=== PATIENT | male | born 1950 | race Caucasian/White ===

== ENCOUNTER 2023-05-26 15:00 | Emergency (ER) | payer MEDICARE, SELFPAY ==
--- NOTE | ~2023-05-26 | XR_ITS ---
XR hip LT 2V w AP pelvis DATE: 05/26/2023 17:09 INDICATION: Left hip pain for 10 days. No known injury. TECHNIQUE: AP pelvis. AP and lateral views of left hip. COMPARISON: None FINDINGS: There is a transitional lumbosacral vertebra sacralization and pseudoarthrosis on the left. Degenerative disc disease is noted in the lower lumbar spine. The pubic symphysis and sacroiliac joints are intact. No pelvic fracture or bone destruction is detected. Mild left hip joint space narrowing. No fracture or dislocation, avascular necrosis or bone destruction of the left hip is detected. 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
[2023-05-26 16:01] VITALS: BP 136/91; PULSE 79; RESP 18; TEMP 36.8; O2SAT 98
--- NOTE | 2023-05-26 18:14 | ED.EXTPRO ---
HPI - Extremity Problem General Chief complaint: Extremity Problem,Nontraumatic Stated complaint: L HIP PAIN [id number] Time Seen by Provider: 05/26/23 17:56 History of Present Illness HPI Narrative: 73-year-old male presented emergency department for evaluation of left hip pain. Patient states that he did have left hip pain intermittently over the last few days but after increased activity including some heavy lifting and some brisk walking he had worsening symptoms. Patient did take a prednisone, Flexeril and Vicodin from home and reported some minor improvement. Patient denies any associated numbness or weakness. Patient states he got left hip pain that does radiate down the left thigh. Patient denies any difficulty starting urination but does report some issues with constipation. Related Data Home Medications Medication Instructions Recorded Confirmed atorvastatin 40 mg tablet 40 mg PO HS 05/05/23 05/05/23 levothyroxine 88 mcg tablet 88 mcg PO DAILY 05/05/23 05/05/23 lisinopril 10 1 tablet PO DAILY 05/05/23 05/05/23 mg-hydrochlorothiazide 12.5 mg tablet Allergies Allergy/AdvReac Type Severity Reaction Status Date / Time No Known Allergies Allergy Verified 05/26/23 17:44 Review of Systems Review of Systems: All systems reviewed & are unremarkable except as noted in HPI and below PMFSH Social History Social History Smoking status: Never smoker Alcohol intake: current Alcohol use details: 2 beers daily Substance use type: does not use Living arrangements: with family Spiritual care concerns: No Exam Narrative: APPEARANCE: Well appearing, no pain, no distress, well-nourished. HEAD: normocephalic, atraumatic. EYES: PERRLA/EOMI, conjunctivae clear. NOSE: Normal no drainage EARS:TMS clear with good light reflex. THROAT: Pharynx clear, no exudate. NECK: Supple. No adenopathy, no masses. RESPIRATORY: Airway patent, respirations nonlabored. Clear to auscultation bilaterally, no rales, rhonchi, wheezing. CARDIOVASCULAR: Regular rate and rhythm without murmurs rubs or gallops. ABDOMINAL: Soft, nontender, nondistended, normal bowel sounds MUSCULOSKELETAL: Reproducible left hip tenderness to palpation. NEURO: Alert. Cranial nerves II through XII intact. Grossly intact SKIN: Warm, dry. Normal Color Course Course Emergency Course: 73-year-old male presented the ED for evaluation of left hip pain. Patient's exam is consistent with sciatica. Patient will be started on Medrol Dosepak, Flexeril and provided some Eaton for pain control. Patient does have follow-up scheduled with orthopedics. Vital Signs Vital signs: Vital Signs Temperature 98.2 F 05/26/23 16:01 Pulse Rate 79 05/26/23 16:01 Respiratory Rate 18 05/26/23 16:01 Blood Pressure 136/91 H 05/26/23 16:01 Pulse Oximetry 98 05/26/23 16:01 Oxygen Delivery Room Air 05/26/23 16:01 Temperature 98.2 F 05/26/23 16:01 Pulse Rate 79 05/26/23 16:01 Respiratory Rate 18 05/26/23 16:01 Blood Pressure 136/91 H 05/26/23 16:01 Pulse Oximetry 98 05/26/23 16:01 Oxygen Delivery Room Air 05/26/23 16:01 Discharge Plan Discharge Clinical Impression: Sciatica Patient Disposition: Home, Self-Care Condition: Stable Instructions: Antibiotic Form, Sciatica (ED) Additional Instructions: Medrol Dosepak as directed. Flexeril for muscle spasm. Eaton as needed for additional pain control. Have close follow-up with orthopedics as scheduled. If you have any worsening symptoms then please call or return to the emergency department. Prescriptions: New methylprednisolone [Medrol (Adeel)] 4 mg tablets,dose pack See Rx Instructions .ROUTE .COMPLEX Qty: 21 0RF Rx Instructions: orally per package directions cyclobenzaprine 10 mg tablet 10 mg PO BID PRN (Reason: muscle spasm) Qty: 14 0RF hydrocodone-acetaminophen 5-325 mg tablet 1 tablet PO Q12H PRN (Reason: pain) Qty: 10 0RF No Acti
[2023-05-26] MEDS: CYCLOBENZAPRINE HCL 10 MG TABLET PO (18:20)
[2023-05-26] MEDS: HYDROcodone/acetaminophen (*CRX) 5-325 MG TABLET 1 TAB PO (18:20)
[2023-05-26] MEDS: KETOROLAC 30 MG/ML VIAL (*BKC) IM (18:20)
== END 2023-05-26 18:41 | disposition home or self-care (01) ==
PROVIDERS: Emergency Provider Emergency Medicine; PCP Internal Medicine
DX: M54.30 Sciatica, unspecified side (principal)
CPT/HCPCS: 73502; 96372; 99283; A9270; J1885

== ENCOUNTER → 2023-06-15 12:52 | Outpatient (CLI) | payer MEDICARE, SELFPAY ==
--- NOTE | ~2023-06-15 | MR_ITS ---
EXAMINATION: MR lumbar spine wo con DATE: 06/15/2023 13:45 INDICATION: Left L5 radiculopathy. TECHNIQUE: Magnetic resonance imaging (MRI) of the lumbar spine was performed without intravenous con trast. Sequences included sagittal T2-weighted FSE, sagittal T2-weighted FS FSE, sagittal T1-weighted FSE, and axial T2-weighted FSE. COMPARISON: None FINDINGS: There is 6 degrees levocurvature of lumbar spine. L5 is a transitional segment. Vertebral b cristina heights are normal. There is mildly decreased disc height at L2-L3, mildly decreased disc height at L3-L4, severely decreased disc height at L4-L5. The distal spinal cord signal intensity is normal. The conus medullaris is at T12. The following disc levels are specifically discussed: L1-L2: The disc does not extend beyond the endplate margin. There is mild bilateral facet joint osteo arthritis. There is no neural foraminal stenosis. There is no central canal stenosis. L2-L3: The disc is bulging and has an annular fissure. There is mild right facet joint osteoarthritis . There is mild bilateral neural foraminal stenosis. There is mild central canal stenosis. L3-L4: The disc is bulging. There is severe bilateral facet joint osteoarthritis. There is mild right and moderate left neural foraminal stenosis. There is moderate central canal stenosis. L4-L5: The disc is bulging with superimposed right subarticular zone extrusion with mass effect on ri ght L5 nerve root. There is moderate bilateral facet joint osteoarthritis. There is mild right and mo derate left neural foraminal stenosis. There is mild central canal stenosis. There is moderate stenos is of right lateral recess. There are changes of posterior decompression on the right. L5-S1: The disc does not extend beyond the endplate margin. There is mild bilateral facet joint osteo arthritis. There is no neural foraminal stenosis. There is no central canal stenosis. IMPRESSION: 1. Severe lumbar spondylosis. Reviewed, dictated and finalized at location A.
== END ==
PROVIDERS: PCP Internal Medicine; Visit Provider Orthopaedic Surgery
DX: M47.26 Other spondylosis with radiculopathy, lumbar region (principal)
CPT/HCPCS: 72148

== ENCOUNTER 2023-07-09 11:36 | Day surgery (SDC) | payer MEDICARE, SELFPAY ==
[2023-04-06 09:17] VITALS: BMI 28.1
[2023-06-02 13:29] VITALS: BMI 28.0
--- NOTE | 2023-07-08 15:57 | P.PNAN_ITS ---
Anes - Initial Pre Proc Eval Procedure: Operation Date: 07/09/23 13:30 Proposed Procedures p Diagnostic Colonoscopy - Maximino Hernandez MD Date/Time: 07/08/23 15:57 Surgeon: Maximino Hernandez MD Pre Op Diagnosis: History of Colon Polyps Patient Data Age: 73 Gender: M Height: 1.83 m Weight: 94 kg Allergies Allergy/AdvReac Type Severity Reaction Status Date / Time No Known Allergies Allergy Verified 07/09/23 12:15 Home Medications Medication Instructions Recorded Confirmed Type sodium,potassium,mag sulfates 17.5 See Rx Instructions PO .COMPLEX 04/06/23 07/09/23 Rx gram-3.13 gram-1.6 gram oral soln #354 mL (Suprep Bowel Prep Kit) atorvastatin 40 mg tablet 40 mg PO HS 05/05/23 07/09/23 History levothyroxine 88 mcg tablet 88 mcg PO DAILY 05/05/23 07/09/23 History lisinopril 10 1 tablet PO DAILY 05/05/23 07/09/23 History mg-hydrochlorothiazide 12.5 mg tablet cyclobenzaprine 10 mg tablet 10 mg PO BID PRN muscle spasm #14 05/26/23 07/09/23 Rx tabs hydrocodone 5 mg-acetaminophen 325 1 tablet PO Q12H PRN pain #10 tabs 05/26/23 07/09/23 Rx mg tablet sodium,potassium,mag sulfates 17.5 See Rx Instructions PO .COMPLEX 07/07/23 07/09/23 Rx gram-3.13 gram-1.6 gram oral soln #354 mL (Suprep Bowel Prep Kit) Patient hx anesthesia problems: none Family hx anesthesia problems: none Results Review: All pre-operative results and documents have been reviewed as part of the pre- operative evaluation. [facility] Past Medical History Medical History (Updated 07/09/23 @ 12:40 by Maximino Hernandez MD) Hyperlipidemia Hypertension Hypothyroidism Social History Social History Smoking status: Never smoker Alcohol intake: current Alcohol use details: 2 beers daily Substance use type: does not use Living arrangements: with family Spiritual care concerns: No Anes - Eval Final PreProcedure Day of Procedure 07/08/23 15:57 Patient weight: overweight Heart: regular rate and rhythm Lungs: clear to auscultation Airway: Mallampati scale class II Neurological: alert and oriented Last oral intake: >/= 8 hours ASA classification: III Emergent: no Anesthetic plan: proceed Anesthesia type and monitoring: general GIVS and standard monitoring Results Review: All pre-operative results and documents have been reviewed as part of the pre- operative evaluation. Informed Consent: The patient's anesthetic plan and its attendant risks and benefits were discussed with the patient/family/POA. Questions were solicited and answers provided to the satisfaction of the patient/family/POA.
[2023-07-09 12:10] VITALS: BP 171/95; PULSE 89; RESP 20; TEMP 36.7; O2SAT 100
--- NOTE | 2023-07-09 12:38 | PM.HPGS ---
History of Present Illness History of Present Illness Consent: Risks, benefits, and alternatives have been discussed and questions answered. Patient agrees to proceed with procedure. Chief complaint: History of Colon Polyps Narrative: Josh Cooper is a 73 year old male Presents for screening colonoscopy. Patient was found to have a benign colon polyp removed from the colon in 2018. Patient reports his current weight appetite and bowel movements are normal. Patient denies abdominal pain. He has had no bleeding. Family history is noncontributory. Review of Systems Review of Systems: Review of systems reveals patient has complaints of see attic up. He says stable at present. Otherwise review of systems noncontributory. [facility] Past Medical History Medical History (Updated 07/09/23 @ 12:40 by Maximino Hernandez MD) Hyperlipidemia Hypertension Hypothyroidism Social History Social History Smoking status: Never smoker Alcohol intake: current Alcohol use details: 2 beers daily Substance use type: does not use Living arrangements: with family Spiritual care concerns: No Meds Home Medications and Allergies Home Medications Medication Instructions Recorded Confirmed Type sodium,potassium,mag sulfates 17.5 See Rx Instructions PO .COMPLEX 04/06/23 07/09/23 Rx gram-3.13 gram-1.6 gram oral soln #354 mL (Suprep Bowel Prep Kit) atorvastatin 40 mg tablet 40 mg PO HS 05/05/23 07/09/23 History levothyroxine 88 mcg tablet 88 mcg PO DAILY 05/05/23 07/09/23 History lisinopril 10 1 tablet PO DAILY 05/05/23 07/09/23 History mg-hydrochlorothiazide 12.5 mg tablet cyclobenzaprine 10 mg tablet 10 mg PO BID PRN muscle spasm #14 05/26/23 07/09/23 Rx tabs hydrocodone 5 mg-acetaminophen 325 1 tablet PO Q12H PRN pain #10 tabs 05/26/23 07/09/23 Rx mg tablet sodium,potassium,mag sulfates 17.5 See Rx Instructions PO .COMPLEX 07/07/23 07/09/23 Rx gram-3.13 gram-1.6 gram oral soln #354 mL (Suprep Bowel Prep Kit) Allergies Allergy/AdvReac Type Severity Reaction Status Date / Time No Known Allergies Allergy Verified 07/09/23 12:15 Vital Signs Vital Signs - 24 hr 07/09/23 12:10 Temperature 98.1 F Pulse Rate 89 Respiratory Rate 20 Blood Pressure 171/95 H Pulse Oximetry 100 Oxygen Delivery Room Air Exam Narrative: Physical exam reveals patient to be alert. Vital signs stable. HEENT exam is unremarkable. Patient is anicteric. Lungs are clear to auscultation and to percussion heart is without murmur or extra sounds. Abdomen bowel sounds are present soft nontender with no organomegaly. External rectal exam is normal. Assessment and Plan Assessment and plan (1) History of colon polyps: Code(s): Z86.010 - Personal history of colonic polyps Status: Acute Assessment and Plan: Patient has a history of colon polyps. Plan for surveillance colonoscopy now, and consider this at 5 year intervals.
[2023-07-09] MEDS: LACTATED RINGERS 1,000 ML 150 ML IV CONT (12:41)
[2023-07-09 13:10] VITALS: BP 97/49; PULSE 72; RESP 16; O2SAT 100
[2023-07-09 13:20] VITALS: BP 109/80; PULSE 73; RESP 16; O2SAT 97
[2023-07-09 13:35] VITALS: BP 123/93; PULSE 73; RESP 16; O2SAT 97
== END 2023-07-09 13:55 | disposition home or self-care (01) ==
PROVIDERS: PCP Nurse Practitioner Family; Visit Provider Internal Medicine Gastroenterology
PROC: 0DJD8ZZ Inspection of Lower Intestinal Tract, Via Natural or Artificial Opening Endoscopic (ICD-10-PCS; CPT 45378; principal; 2023-07-09 13:30)
DX: Z86.010 Personal history of colon polyps (principal); K64.8 Other hemorrhoids
CPT/HCPCS: 45378

== ENCOUNTER 2025-03-16 16:08 | Emergency (ER) | payer MEDICARE, SELFPAY ==
--- OUTSIDE RECORDS SUMMARY | 2025-03-16 16:10 | XMS_ITS | Clinical Summary ---
Author Organization [facility] Address [address] [place] [id number] Care Team Providers Care Mirror Machine Feeder Name Role Phone Unavailable Primary Care Provider Unavailabl e Social History Tobacco Use Types Packs/Day Years Used Date Smoking Tobacco: Never Assessed Sex and Gender Information Value Date Recorded Sex Assigned at Not on file Legal Sex Male 11:06 PM CDT Gender Identity Not on file Sexual Orientation Not on file Plan of Treatment Health Maintenance Due Date Last Done Comments Colorectal Cancer Screening Colonoscopy (10 Years) 1950 Hepatitis C 01/01/1970 DTaP, Tdap and Td Vaccines ( 1 - Tdap) 01/01/1971 Pneumococcal Vaccine: 50+ Ye ars (1 of 1 - PCV) 01/01/2002 Zoster Vaccines (1 of 2) 01/01/2002 COVID-19 Vaccine ( - 2023-2 5 season) 2024 RSV Immunization or 60+ Years (1 - 1-dose 75+ series) 01/01/2027 Meningococcal B Vaccine Aged Out No l onger eligible based on patient's age to complete this topic Meningococcal Vaccine Aged Out No charanjit elaine eligible based on patient's age to complete this topic RSV Immunizations Under 20 Months Aged Out No longer eligible based on patient's age to complete this topic
--- OUTSIDE RECORDS SUMMARY | 2025-03-16 16:10 | XMS_ITS | Continuity of Care Document ---
Author Organization [facility] Address [address] [place] [address] [address] [place] [address] Phone Care Team Providers Care Wine Blender Name Role Phone Re Hawk Unavailable Unavailable Advance Directives Directive Yes / No Effective Date File Name No Information Encounters Encounter Description Practice Location Reason(s) For Visit Diagnoses Date Provider Providers Copied on Encounter [facility], [id number] [place] [address] [address], [place], [place], [id number], [place] tel:[phone] SEC [facility] No Information Mar-0 3-200 5 Carine Grimaldo. [address] [facility] , [address], [place], [address], [place]. tel:[phone] Family History Family Member Type Diagnosis Age At Onset No Information Payers Payer name Insurance type Covered libertarian ID Authoriza tion(s) No Information Social History Type Description Quantity Date Captured Comments Sex Male Smoking Status No Information Chief Complaint And Reason For Visit No Information Reason For Referral Reason For Referral No Information History Of Present Illness Encounter Date Complaint History Of Prese nt Illness No Information Functional Status Date Functional Assessmen t No Information Instructions Date Instruction Additional Infor mation No Information Assessments Type Assessment Date No Information Patient Care Teams Name Effective Dates (start - stop) Status Members No Information
--- OUTSIDE RECORDS SUMMARY | 2025-03-16 16:10 | XMS_ITS | Data Portability ---
Author Organization [place] [facility] [employer], Main Office Address [address] [place] [address] Care Team Providers Care Casing Fluid Tender Name Role Phone HOMERO BELL Primary Care Provider [phone] Assessment Encounter Date Assessment Date Assessment LastModified by Organization Details LastModified Time 02/18/2024 02/18/2024 09/10/2023: Maya [facility] PSA 2.91 A1C 5.8H Not available 02/18/2024 16:22:19 09/20/2024 09/20/2024 09/10/2023: Maya Jean [facility] PSA 2.91 A1C 5.8H 09/19/2024: TG 159 Gluc 109 PSA 2.28 Not available 09/20/2024 11:27:12 12/20/2024 12/20/2024 09/10/2023: Maya Jean [facility] PSA 2.91 A1C 5.8H 09/19/2024: TG 159 Gluc 109 PSA 2.28 Not available 12/20/2024 14:59:36 03/07/2025 03/07/2025 09/10/2023: Maya Jean [facility] PSA 2.91 A1C 5.8H 09/19/2024: TG 159 Gluc 109 PSA 2.28 03/02/2025: [facility] A1C 6.2 TSH 4.55H, FT41.1 Not available 03/07/2025 11:49:21 Plan of Treatment Reminders Order Date Submit Date Provider Last Modified By Organization Details Last Modified Time Details Appointments Any 15 2024 10:30A Dany gonzalez MD Not available Not available Not available Lab vitamin D, 25-hydrox y, total, serum 2024 025 [place] [facility], [address], [place], [address], 03/07/2025 11:52:22 HbA1c (hemoglob in A1c), blood 2024 025 [place] [facility], [address], [place], [address], 03/07/2025 11:52:26 microalbu min/creat inine, mass ratio, urine 2024 025 [place] [facility], [address], [place], [address], 03/07/2025 11:52:24 CMP, serum or plasma 2024 025 [place] [facility], [address], [place], [address], 03/07/2025 11:52:24 CBC w/ auto diff 2024 025 [place] [facility], [address], [place], [address], 03/07/2025 11:52:22 lipid panel, serum 2024 025 [place] [facility], [address], [place], [address], 03/07/2025 11:52:25 T4, free, serum 2024 025 [place] [facility], [address], [place], [address], 03/07/2025 11:52:23 TSH, serum or plasma 2024 025 [facility], [address], [place], [address], 03/07/2025 11:52:24 vitamin B12 + folate, serum or blood 2024 [place] [facility], [address], [place], [address], 03/07/2025 11:52:25 vitamin D, 25-hydrox y, total, serum 2024 025 [place] [facility], [address], [place], [address], 12/20/2024 12:03:33 HbA1c (hemoglob in A1c), blood 2024 [place] [facility], [address], [place], [address], 03/07/2025 12:33:28 microalbu min/creat inine, mass ratio, urine 2024 025 [place] [facility], [address], [place], [address], 12/20/2024 12:03:30 CMP, serum or plasma 2024 025 [facility], [address], [place], [address], 03/07/2025 15:30:18 CBC w/ auto diff 2024 025 [place] [facility], [address], [place], [address], 12/20/2024 12:03:32 lipid panel, serum 2024 025 [place] [facility], [address], [place], [address], 03/07/2025 15:30:18 T4, free, serum 2024 025 [place] [facility], [address], [place], [address], 12/20/2024 12:03:35 TSH, serum or plasma 2024 025 [place] [facility], [address], [place], [address], 12/20/2024 12:03:33 vitamin B12 + folate, serum or blood 2024 025 [place] [facility], [address], [place], [address], 03/07/2025 15:30:18 vitamin D, 25-hydrox y, total, serum 2024 025 [place] [facility], [address] [place], [address], 09/20/2024 11:27:30 HbA1c (hemoglob in A1c), blood 2024 025 [place] [facility], [address], [place], [address], 09/20/2024 11:27:32 microalbu min/creat inine, mass ratio, urine 2024 025 [place] [facility], [address] [place], [address], 09/20/2024 11:27:29 CMP, serum or plasma 2024 025 [place] [facility], [address] [place], [address], 09/20/2024 11:27:32 CBC w/ auto diff 2024 025 [place] [facility], [place], [address], 09/20/2024 11:27:29 lipid panel, serum 2024 025 [employer] [facility], [address], [place], [address], 09/20/2024 11:27:30 T4, free, serum 2024 025 [place] [employer] [facility], [address], [place], [address], 09/20/2024 11:27:33 TSH, serum or plasma 2024 025 [place] [facility], [address], [place], [address], 09/20/2024 11:27:33 vitamin B12 + folate, serum or blood 2024 025 [place] [employer] [facility], [address], [place], [address], 09/20/2024 11:27:31 vitamin D, 25-hydrox y, total, serum 2023 024 [email or web address] [employer] [facility], [address], [place], [address], 11/01/2024 08:38:19 HbA1c (hemoglob in A1c), blood 2023 024 [place] [facility], [address], [place], [address], 09/20/2024 17:26:01 microalbu min/creat inine, mass ratio, urine 2023 024 [email or web address] [employer] [facility], [address], [place], [address], 11/01/2024 08:38:19 CMP, serum or plasma 2023 024 [place] [address] [employer] [facility], [address], [place], [address], 11/01/2024 08:38:18 CBC w/ auto diff 2023 024 [place] [address] [employer] [facility], [address], [place], [address], 11/01/2024 08:38:18 lipid panel, serum 2023 024 [place] [address] [employer], [address], [place], [address], 11/01/2024 08:38:18 T4, free, serum 2023 024 [place] [address] [employer], [address], [place], [address], 11/01/2024 08:38:18 TSH, serum or plasma 2023 024 [place] [address] [employer], [address], [place], [address], 11/01/2024 08:38:18 vitamin B12 + folate, serum or blood 2023 024 [place] [address] [employer], [address], [place], [address], 11/01/2024 08:38:19 Referral diabetic ophthalmo logy referral - Please call patient to schedule an appointme nt. Thank you. 2024 025 [facility], [address], [place], [address], 03/07/2025 12:51:27 podiatris t referral - Please call patient to schedule an appointme nt. Thank you. 2024 025 [facility] Ogden [facility], [address], [address], [place], [address], 03/07/2025 12:46:10 diabetic ophthalmo logy referral - Please call patient to schedule an appointme nt. Thank you. [address] [facility], [address], [place], [address], 12/21/2024 10:30:29 podiatris t referral - Please call patient to schedule an appointme nt. Thank you. 2024 025 LIONEL Ogden [facility], [address], [facility] [address], [place], [address], 12/21/2024 11:10:51 diabetic ophthalmo logy referral - Please call patient to schedule. [address], [address], [place], [address], 11/23/2024 08:13:37 podiatris t referral 2024 025 Osiel Ogden DPM, [address], [facility], [place], [address], 09/20/2024 16:04:02 diabetic ophthalmo logy referral 2023 024 [email or web address] Rell Bruce, [facility], [place], [address], 09/20/2024 16:04:19 podiatris t referral 2023 024 [email or web address] Osiel Ogden DPM, [address], [facility] [address], [place], [address], 09/20/2024 16:03:56 Procedures None recorded. Surgeries None recorded. Imaging None recorded. Medication Orders diclofena c sodium 75 mg tablet,de layed release 2024 025 [place] [facility], [address], [address], [place], [place], [phone], 03/07/2025 11:51:40 diclofena c sodium 75 mg tablet,de layed release 2024 025 [facility], [address] [place] [address], [address], [place], [place], [phone], 12/20/2024 12:03:12 Patient TargetsNo targets recorded. Patient Instructions Encounter Date Encounter Id Patient Instructions Last Modified By Organization Details Last Modified Time 02/18/2024 [id number] dementia rating scale-2* Not available 02/18/2024 16:35:09 alcohol misuse* [email or web address] Not available 02/18/2024 16:35:20 depression screening* Not available 02/18/2024 16:35:41 Timed Up and Go test (TUG)* [email or web address] Not available 02/22/2024 18:38:41 multi-dimensiona l health assessment questionnaire* [email or web address] Not available 02/18/2024 16:34:29 Personalized [facility] lth Plan and Screening Recommendations Advance Directives - Do you have one? Yes Advance Directives - Do we have your advance directive on file in your health record? No, please bring in a copy at your earliest convenience Primary Prevention/Interven tion (prevents or decreases the chance of common diseases from occurring) Smoking Risk: Non Smoker Alcohol Misuse Screening: Negative Weight: Overweight try to lose 5% of your body weight Physical activity: Appropriate physical activity Nutrition: Average Refer to attached handout DASH Diet: After Your Visit Fall Risk (screened today): Low Refer to attached handout Preventing Falls: After your Visit Vaccines Pneumococcal: No further needed Influenza: Your next one in the fall of this year Chronic Disease Risks Stroke: Intermediate Risk Follow DASH diet Heart Attack: Intermediate Risk Follow DASH diet/ exercise daily Clogging of the Arteries: High risk Follow DASH diet Diabetes: High Risk Drastically limit sugar and products made with any type of flour (bread, pasta, cereal, cookies, crackers, etc.) Secondary Prevention/Interven tion (detects treatable diseases before they may cause symptoms, disability, or ) Prostate Cancer Screening: Your next PSA in: Ordered Colon Cancer Screening: Colonoscopy Date Screening Last Performed: 2022 Eye Disease Screening: Recommended today Dementia Risk: Low I have no recommendations Depression Screening: Negative [email or web address] Not available 02/18/2024 16:40:34 Reason for Referral Diabetic Ophthalmology Refer ral for Prediabetes Referring Physician: [facility], Encounter Date: 02/18/2024 Afternoon Nanny Referral for Pred iabetes Referring Physician: [facility]ero [facility], Encounter Date: 02/18/2024 Diabetic Ophthalmology Refer ral for Prediabetes Please call patient to schedule. Referring Physician: [facility], Encounter Date: 09/20/2024 Afternoon Nanny Referral for Pred iabetes Referring Physician: [facility]ero [facility], Encounter Date: 09/20/2024 Diabetic Ophthalmology Refer ral for Prediabetes Please call patient to schedule an appointment. Thank you. Referring Physician: Maru [facility], Encounter Date: 12/20/2024 Afternoon Nanny Referral for Pred iabetes Please call patient to schedule an appointment. Thank you. Referring Physician: Maru [facility], Encounter Date: 12/20/2024 Diabetic Ophthalmology Refer ral for Prediabetes Please call patient to schedule an appointment. Thank you. Referring Physician: Maru [facility], Encounter Date: 03/07/2025 Afternoon Nanny Referral for Pred iabetes Please call patient to schedule an appointment. Thank you. Referring Physician: Maru [facility], Encounter Date: 03/07/2025 Results Created Date Observation Date Name Description Value Unit Range Abnormal Flag Note LastModifiedBy Organization Detail LastModifiedTime Result Notes None recorded. Problems Name Problem SNOMED Code Status Onset Date Resolution Date Notes Provider Name and Address Organization Details Recorded Time Prediabet es 972873822 Active 2022 Not Available [employer] 3 09:48:33 Blood in urine 03417831 Active 2022 Not Available [facility] 3 09:48:33 Nocturia 459488534 Completed Not Available [facility] 3 03:03:12 On examinati on - initial high BP Completed 201605/27/2018 Not Available [facility] 3 03:03:13 Multiple skin tags 282817299 Active 2021 Not Available [facility] 3 09:48:33 Hypothyro idism 11778715 Active Not Available [facility] 3 09:48:33 Hyperlipi demia 05678055 Active Not Available [facility] 3 09:48:33 Essential hypertens ion 55548776 Active Not Available [facility] 3 09:48:33 Fatigue 47277795 Completed Not Available [facility] 3 03:03:13 Pain of left hip joint 84615544562 9100 Active 2022 Not Available [facility] 3 09:48:33 Lumbar radiculop athy 352416517 Active 2022 Swetha Juan CMA null, [facility] 3 18:18:14 Low back pain 369119522 Active 2022 ANTON Lerma null, [place] [facility] 3 14:49:17 Chronic low back pain 033802135 Active 2022 EPIFANIO Johns [address], [address], [place], [address] , [facility] 3 11:23:31 Upper respirato ry infection 46568141 Active 2023 EPIFANIO Johns [address], [address], [place], [address] , [facility] 4 14:52:56 Vitamin D deficienc y 67782019 Active 2023 Homero villareal MD [address], [address], [place], [address] , [facility] [employer] [facility] 4 16:08:04 Serum vitamin B12 below reference range 733116024 Active 2023 Homero villareal MD [address], [address], [place], [address] , [facility] [employer] [facility] 4 16:08:16 Problem Notes None recorded. Procedures Surgical History Date Name Laterality Status Provider Name and Address Organization Details Recorded Time 02/18/20 24 Medicare Wellness CPT Code, subsequent completed Damir Aguilar LPN [facility] [employer] [facility] 02/17/2024 17:27:09 10/16/19 Colonoscopy with biopsy completed Haley Enriquez MA [facility] [employer] [facility] 02/18/2024 15:55:47 Tonsillectomy completed Not Available [facility] 11/05/2022 02:55:59 Hernia Repair completed Not Available [facility] 11/05/2022 02:55:59 Back Surgery completed Not Available [facility] 11/05/2022 02:55:59 Imaging Results None recorded. Procedure Notes None recorded. Medical Equipment None Reported. Allergies No known drug allergies Medications Name Sig Start Date Stop Date Status Note LastModified by Organization Details LastModified Time cyclobenzap rine 10 mg tablet TAKE 1 TABLET BY MOUTH TWICE DAILY NEEDED 09/20 completed Not Available Not Available Not Available amoxicillin 500 mg capsule Take 1 capsule 3 times a day by oral route. 12/23 completed Not Available Not Available Not Available atorvastati n 40 mg tablet TAKE 1 TABLET BY MOUTH DAILY 2024 active Not Available Not Available Not Avai lable buspirone 5 mg tablet TAKE 1 TABLET 3 TIMES DAILY NEEDED active Not Available Not Available No t Available atorvastati n 20 mg tablet TAKE 1 TABLET BY MOUTH EVERY DAY 04/30 completed Not Available Not Available Not Available azithromyci n 250 mg tablet TAKE 2 TABLETS BY MOUTH ON DAY 1, AND THEN TAKE 1 TABLET BY MOUTH ONCE A DAY ON DAY 2 THROUGH DAY 5 02/17 completed Not Available Not Available Not Available benzonatate 200 mg capsule Take 1 capsule 3 times a day by oral route as needed. 02/02 completed Not Available Not Available Not Available hydrocodone 5 mg-acetamin ophen 325 mg tablet TAKE 1 TABLET BY MOUTH EVERY 12 HOURS NEEDED FOR PAIN 08/13 completed Not Available Not Available Not Available meloxicam 15 mg tablet TAKE 1 TABLET BY MOUTH ONCE DAILY 08/13 completed Not Available Not Available Not Available levothyroxi ne 88 mcg tablet TAKE 1 TABLET BY MOUTH IN THE MORNING active Not Available Not Available No t Available hyoscyamine 0.125 mg sublingual tablet DISSOLVE 1 TABLET UNDER THE TONGUE EVERY 4 HOURS NEEDED FOR SPASM 02/17 completed Not Available Not Available Not Available diclofenac sodium 75 mg tablet,sara yed release Take 1 tablet twice a day by oral route as needed. 2024 active Not Available Not Available Not Avai lable Cheratussin AC 10 mg-100 mg/5 mL oral liquid Take 10 mL 3 times a day by oral route. 12/23 completed Not Available Not Available Not Available lisinopril 10 mg-hydrochl orothiazide 12.5 mg tablet TAKE 1 TABLET BY MOUTH DAILY active Not Available Not Available No t Available methylpredn isolone 4 mg tablets in a dose pack TAKE BY MOUTH DIRECTED ON INSIDE OF PACKAGE 09/20 completed Not Available Not Available Not Available ondansetron 4 mg disintegrat ing tablet DISSOLVE 1 TABLET IN MOUTH EVERY 8 HOURS NEEDED FOR NAUSEA AND VOMITING FOR 5 DAYS 02/17 completed Not Available Not Available Not Available amoxicillin 875 mg-potassiu m clavulanate 125 mg tablet TAKE 1 TABLET BY MOUTH TWICE A DAY FOR 10 DAYS 12/20 completed Not Available Not Available Not Available Cialis 20 mg tablet TAKE DIRECTED. 11/24 completed Not Available Not Available Not Available melatonin 10mg QHS active Not Available Not A vailable Not Available Benadryl 50mg QHS active Not Available Not Av ailable Not Available Toradol 08/13 completed Not Available Not Available Not Available fenofibrate nanocrystal lized 145 mg tablet TAKE ONE TABLET BY MOUTH ONCE DAILY active Not Available Not Available No t Available CoQ-10 take 1 tab daily 12/10 completed Not Available Not Available Not Available sodium,pota ssium,mag sulfates 17.5 gram-3.13 gram-1.6 gram oral soln MIX AND DRINK DIRECTED 08/13 completed Not Available Not Available Not Available Fluzone Quad 6544-9555 (PF) 60 mcg (15 mcg x 4)/0.5 mL IM syringe active Not Available Not Available N ot Available Fluad 65yr up(PF)45 mcg(15 mcgx3)/0.5 mL intramuscul ar syringe 02/02 completed Not Available Not Available Not Available Fluad 65yr up(PF)45 mcg(15 mcgx3)/0.5 mL intramuscul ar syringe active Not Available Not Available N ot Available Vitals Date Recorded Body height Body mass index (BMI) Body weight Body temperature Heart rate Systolic And Diastolic Provider Name and Address Organization Details Last Updated DateTime 5 180.34 cm 28.7 kg/m2 27709.0 3 g 97.6 [degF] 60 /min 126/68 mm[Hg] ANTON Diallo [employer] [facility] [employer] 5 11:09:58 Date Recorded Body height Body mass index (BMI) Body weight Body temperature Heart rate Systolic And Diastolic Provider Name and Address Organization Details Last Updated DateTime 5 180.34 cm 28.5 kg/m2 56945.8 4 g 97.5 [degF] 60 /min 124/70 mm[Hg] ANTON Diallo [employer] [facility] [employer] 5 11:28:23 Date Recorded Body height Body mass index (BMI) Body weight Body temperature Heart rate Oxygen saturation Oxygen saturation in Arterial blood by Pulse oximetry Systolic And Diastolic Provider Name and Address Organization Details Last Updated DateTime 4 180.34 cm 28.9 kg/m2 62467.6 2 g 97.6 [degF] 59 /min 97 % 97 % 118/68 mm[Hg] Haley Enriquez MA [employer] [facility] [employer] 4 15:51:34 Date Recorded Body height Body mass index (BMI) Body weight Body temperature Heart rate Systolic And Diastolic Provider Name and Address Organization Details Last Updated DateTime 4 180.34 cm 28.6 kg/m2 28148.4 4 g 97.7 [degF] 60 /min 122/74 mm[Hg] NATON Diallo [place] [employer] [facility] 4 10:44:28 Date Recorded Body height Body mass index (BMI) Body weight Body temperature Heart rate Systolic And Diastolic Provider Name and Address Organization Details Last Updated DateTime 5 180.34 cm 28.9 kg/m2 46808.6 2 g 97.5 [degF] 60 /min 116/62 mm[Hg] ANTON Diallo [place] [employer] [facility] 5 11:15:07 Social History Question Answer Notes LastModified by Organization Details LastModified Time Tobacco Smoking Status Never Smoker Not Available [employer] 11/05/2022 02:50:53 Do You Have An Advance Directive? Yes [id number].[email or web address] [id number] Information not available 11/05/2022 Are You Blind Or Do You Have Difficulty Seeing? No MIGRATION.030 [id number] Information not available 11/05/2022 Is Blood Transfusion Acceptable In An Emergency? Yes [email or web address] Information not available 02/18/2024 What Is Your Level Of Caffeine Consumption? Moderate MIGRATION.030 [id number] Information not available 11/05/2022 In The 14 Days Before Symptom Onset, Have You Had Close Contact With A Laboratory-confi rmed COVID-19 While That Case Was Ill? No MIGRATION.030 [id number] Information not available 11/05/2022 In The 14 Days Before Symptom Onset, Have You Had Close Contact With A Person Who Is Under Investigation For COVID-19 While That Person Was Ill? No MIGRATION.030 [id number] Information not available 11/05/2022 Are You Deaf Or Do You Have Serious Difficulty Hearing? Yes Has Hearing Aids, Does Not Wear [email or web address] Information not available 02/18/2024 What Type Of Diet Are You Following? REGULAR MIGRATION.030 [id number] Information not available 11/05/2022 What Is The Highest Grade Or Level Of School You Have Completed Or The Highest Degree You Have Received? [id number] MIGRATION.300 [id number] Information not available 11/05/2022 Have There Been Any Changes To Your Family Or Social Situation? No MIGRATION.030 [id number] Information not available 11/05/2022 What Is The Fluoride Status Of Your Home? Unknown MIGRATION.030 [id number] Information not available 11/05/2022 Are There Any Guns Present In Your Home? No MIGRATION.0301 [id number] Information not available 11/05/2022 Do You Use Insect Repellent Routinely? No MIGRATION.0301 [id number] Information not available 11/05/2022 Where Do You Live? SingleLevelHouse MIGRATION.0301 [id number] Information not available 11/05/2022 Presence Of Domestic Violence No [email or web address] Information not available 02/18/2024 Are You Able To Care For Yourself? No [email or web address] Information not available 02/18/2024 Are You Blind Or Do Yo Have Difficulty Seeing? No Information not available 02/18/2024 Are You Deaf Or Do You Have Serious Difficulty Hearing? Yes Has Hearing Aids Does Not Wear Them Information not available 02/18/2024 General Stress Level? Low [email or web address] Information not available 02/18/2024 Live Alone Of With Others? With Others [email or web address] Information not available 02/18/2024 Do You Have A Medical Power Of Machine Sneller? Yes MIGRATION.0301 [id number] Information not available 11/05/2022 What Was The Date Of Your Most Recent Tobacco Screening? 12/20/2024 [email or web address] Information not available 12/20/2024 Do You Have Any Pets? Yes MIGRATION.0301 [id number] Information not available 11/05/2022 What Is Your Relationship Status? MIGRATION.0301 [id number] Information not available 11/05/2022 Do You Use Your Seat Belt Or Car Seat Routinely? Yes MIGRATION.0301 [id number] Information not available 11/05/2022 Do You Have Smoke And Carbon Monoxide Detectors In Your Home? Yes MIGRATION.0301 [id number] Information not available 11/05/2022 Are You Passively Exposed To Smoke? No MIGRATION.0301 [id number] Information not available 11/05/2022 Are There Any Smokers In Your House? No MIGRATION.0301 [id number] Information not available 11/05/2022 Do You Use Sunscreen Routinely? No MIGRATION.0301 [id number] Information not available 11/05/2022 Has Tobacco Cessation Counseling Been Provided? No N/A MIGRATION.0301 [id number] Information not available 11/05/2022 Have You Recently Traveled Abroad? No MIGRATION.0301 [id number] Information not available 11/05/2022 Do You Have Difficulty Walking Or Climbing Stairs? No MIGRATION.0301 [id number] Information not available 11/05/2022 Do You Have Any Dietary Restrictions? No MIGRATION.0301 [id number] Information not available 11/05/2022 How Many Days In The Past Year Have You Consumed 5 Or More Drinks? 0 [email or web address] Information not available 02/18/2024 Sex: Unknown Functional Status Question Answer Note LastModified by Organizat ion Details LastModified Time Do you use any illicit or recreational drugs? No [id number] Information not available 11/05/2022 Do you or have you ever used any other forms of tobacco or nicotine? No [id number] Information not available 11/05/2022 What is your level of alcohol consumption? Moderate 1-2 beers daily MIGRATION.[id number] Information not available 11/05/2022 Do you or have you ever used smokeless tobacco? Never used smokeless tobacco MIGRATION.84646 [id number] Information not available 11/05/2022 Are you currently employed? No Retired [employer] Information not available 02/18/2024 Do you have transportation difficulties? No MIGRATION.[id number] Information not available 11/05/2022 Are you able to walk? YESWOREST MIGRATION.[id number] Information not available 11/05/2022 Do you have difficulty doing errands alone? No MIGRATION.[id number] Information not available 11/05/2022 Are you able to care for yourself? Yes MIGRATION.[id number] Information not available 11/05/2022 Do you have difficulty dressing or bathing? No MIGRATION.[id number] [id number] Information not available 11/05/2022 Do you or have you ever used e-cigarettes or vape? Never used electronic cigarettes MIGRATION.48323 [id number] Information not available 11/05/2022 What is your exercise level? Occasional active lifestyle MIGRATION.12213 [id number] Information not available 11/05/2022 Mental Status Question Answer Note LastModified by Organizat ion Details LastModified Time Do you feel stressed (tense, restless, nervous, or anxious, or unable to sleep at night)? [id number] Information not available 11/05/2022 Do you have difficulty concentrating, remembering or making decisions? No [id number] Information not available 11/05/2022 Family History Relationship Description Onset Age of this Age Resolved Age Notes LastModified by Organization Details LastModified Time Father Diabetes mellitus [id number] Not available 11/05/2022 02:56:04 Father Heart disease [id number] Not available 11/05/2022 02:56:04 Father History of malignant mesothelioma [email or web address] Not available 0 12/20/2024 11:11:13 Medical History Condition Response NERVE DISEASE N BLINDNESS N RHEUMATIC FEVER N KIDNEY STONES N BLADDER PROBLEMS N MRSA N OTHER # 1 N POLIO N LUNG DISEASE/DISORDER N RADIATION / CHEMOTHERAPY N COPD N Other # 2 N BLOOD DISEASES N SURGERY N EAR OR HEARING PROBLEMS N MUMPS N BOWEL PROBLEMS N DEPRESSION (INCLUDING POST ) N STROKE/TIA N ULCERS N BENIGN PROSTATIC HYPERPLASIA N MEASLES N MYOCARDIAL INFARCTION N OBESITY N GERD/NAUSEA N ANEURYSM N URINARY/BLADDER/KIDNEY PROBLEMS N CORONARY ARTERY DISEASE (CAD) N ADDICTION CONCERNS N ENDOMETRIOSIS N Impotence N USE OF BLOOD THINNERS N SKIN PROBLEMS N GASTROINTESTINAL DISORDER N PERIPHERAL VASCULAR DISEASE N MUSCLE,JOINT OR BONE PROBLEMS N GASTROINTESTINAL BLEEDING N BLOOD CLOTS N ASTHMA N CATARACTS N ERECTILE DYSFUNCTION N VARICOSITIES N GI PROBLEMS N Low Testosterone N INFERTILITY N AIDS/HIV N CHEMOTHERAPY / RADIATION N LIVER DISEASE N MALE HYPOGONADISM N HYPERTENSION Y Deficiency N ANXIETY DISORDER N BLOOD TRANSFUSION N ANEMIA/BLOOD DISORDER N CHRONIC EAR INFECTIONS N BRONCHITIS N TUBERCULOSIS N GLAUCOMA N FOOT PROBLEM N DIVERTICULITIS N SLEEP APNEA N CHICKENPOX N INFECTIOUS DISEASE N HEART ARRHYTHMIA N PROSTATE N INSOMNIA N HIGH CHOLESTEROL / HYPERLIPIDEMIA Y HYPERTHYROIDISM N EYE PROBLEMS N NEUROLOGICAL PROBLEMS N EDEMA N CHRONIC PAIN SYNDROME N HYPOTHYROIDISM Y CAROTID BLOCKAGE N CONSTIPATION N BACK / NECK PROBLEMS N ATHEROSCLEROSIS N BREAST PROBLEMS N DIALYSIS N ECZEMA N OSTEOPOROSIS N ARTHRITIS Y APPENDICITIS N DIABETES, TYPE N BAD TEETH N ENT N HEARTBURN / REFLUX N AUTISM SPECTRUM DISORDER (ASD) N HEPATITIS / LIVER DISEASE N GOUT N SLEEP DISORDER N ALZHEIMER'S DISEASE N Brain Problems N HERPES N DEMENTIA N HEADACHES/MIGRAINES N SEIZURES/EPILEPSY N VASCULAR DISEASE N PACEMAKER N Blood Disorder N DIZZINESS N HEART DISEASE/HEART PROBLEMS N KIDNEY DISEASE N MULTIPLE SCLEROSIS N CARDIAC ARRHYTHMIA N CANCER: SPECIFY N ATRIAL FIBRILLATION N Gall Stones N PULMONARY EMBOLISM N AUTOIMMUNE DISEASE N Immunizations Vaccine Type Date Status Note Provider Nam e and Address Organization Details Recorded Time Influenza, adjuvanted, quadrivalent, PF 3 completed Jhoana [place], RMA null, [facility] 12/20/2024 11:26:06 COVID-19, mRNA, LNP-S, PF, garrett-sucrose, 30 mcg/0.3 mL 3 completed Jhoana Shama, RMA null, [facility] 12/20/2024 11:26:07 COVID-19, mRNA, LNP-S, PF, garrett-sucrose, 30 mcg/0.3 mL 4 completed Jhoana Shama, RMA null, [facility] 12/20/2024 11:26:07 Influenza, adjuvanted, trivalent, PF 4 completed Jhoana [place], RMA null, [facility] 12/20/2024 11:26:06 Influenza, adjuvanted, trivalent, PF 8 completed Jhoana [place], RMA null, [facility] 12/20/2024 11:26:06 Influenza, adjuvanted, trivalent, PF 9 completed Jhoana [place], RMA null, [facility] 12/20/2024 11:26:06 zoster recombinant 1 completed Jhoana Shama, RMA null, [facility] 12/20/2024 11:26:06 zoster recombinant 1 completed Jhoana [place], RMA null, [facility] 12/20/2024 11:26:06 COVID-19, mRNA, LNP-S, PF, 30 mcg/0.3 mL dose 1 completed Jhoana [place], RMA null, [facility] 12/20/2024 11:26:06 COVID-19, mRNA, LNP-S, PF, 30 mcg/0.3 mL dose 1 completed Jhoana [place], RMA null, [facility] 12/20/2024 11:26:06 COVID-19, mRNA, LNP-S, PF, 30 mcg/0.3 mL dose 1 completed Jhoana Sesay RMA null, [facility] 12/20/2024 11:26:06 COVID-19, mRNA, LNP-S, PF, 30 mcg/0.3 mL dose, garrett-sucrose 2 completed Jhoana Sesay RMA null, [facility] 12/20/2024 11:26:06 COVID-19, mRNA, LNP-S, bivalent, PF, 30 mcg/0.3 mL dose 2 completed Jhoana Sesay RMA null, [facility] 12/20/2024 11:26:06 RSV, bivalent, protein subunit RSVpreF, diluent reconstituted, 0.5 mL, PF 4 completed Jhoana Sesay RMA null, [facility] 12/20/2024 11:26:06 Tdap 4 completed [facility] 11:26:07 Influenza, high-dose, trivalent, PF 7 completed Jhoana Sesay RMA null, [facility] 12/20/2024 11:26:07 Influenza, split virus, quadrivalent, PF 5 completed Jhoana Sesay RMA null, [facility] 12/20/2024 11:26:07 zoster, unspecified formulation 1 completed Jhoana Sesay RMA null, [facility] 12/20/2024 11:26:06 Influenza, split virus, quadrivalent, preservative 9 completed Jhoana Sesay RMA null, [facility] 12/20/2024 11:26:06 influenza, unspecified formulation 8 completed Jhoana Sesay RMA null, [facility] 12/20/2024 11:26:07 Influenza, split virus, trivalent, preservative 7 completed Jhoana Sesay RMA null, [facility] 12/20/2024 11:26:07 SARS-COV-2 (COVID-19) vaccine, UNSPECIFIED 1 completed ANTON Diallo, [employer] [facility] [employer] [facility] 12/20/2024 11:26:06 SARS-COV-2 (COVID-19) vaccine, UNSPECIFIED 1 completed Jhoana Sesay RMA don, [employer] [facility] [employer] [facility] 12/20/2024 11:26:06 Influenza, high-dose, quadrivalent, PF 2 completed Not Available [facility] 05/29/2023 09:48:33 Influenza, high-dose, quadrivalent, PF 1 completed Not Available [facility] 05/29/2023 09:48:33 Influenza, high-dose, quadrivalent, PF 0 completed Not Available [facility] 05/29/2023 09:48:33 pneumococcal polysaccharide PPV23 9 completed Not Available [facility] 05/29/2023 09:48:33 Pneumococcal conjugate PCV 13 7 completed Jhoana Sesay RMSolitario ochoa, [employer] [facility] [employer] [facility] 12/20/2024 11:26:07 Influenza, split virus, quadrivalent, preservative 6 completed Not Available [facility] 05/29/2023 09:48:33 Past Encounters Encounter ID Performer Location Encounter Start Date Encounter Closed Date Diagnosis/Indication Diagnosis SNOMED-CT Code Diagnosis ICD10 Code Diagnosis Note [id number] Homero villareal MD [place] [place] [facility] [address] [address] 12/06/2020 00:00:00 12/06/2020 12:28:56 [id number] MD ARMIDA Peacock[place] [place] [facility] [address] [address] 06/11/2021 00:00:00 06/11/2021 14:02:11 [id number] MD ARMIDA Peacock[place] [place] [facility] [address] [address] 12/10/2021 00:00:00 12/10/2021 11:14:18 [id number] Homero villareal MD [facility] [place] [facility] [address] [facility] [address] [place] [address] 06/17/2022 00:00:00 06/17/2022 12:28:01 [id number] Homero villareal MD [facility] [place] [facility] [address] [facility] [address] [place] [address] 02/05/2023 10:15:38 02/05/2023 10:43:36 Hypothyroidism 45209329 E03.9 on levothyrox ine Essential hypertension 98877894 I10 on lisinopril /HCTZ Prediabetes 429993244 R7 3.03 continue diet/exerc ise Hyperlipidemia 72548089 E78.5 on atorvastat in Blood in urine 59283192 R31.9 12/2020- he has been referred to urology in the past for this, refuses referral we did discuss risks including risk of untreated bladder cancer and Adult [facility] th examination 879818611 Z00.01 Screening for malignant neoplasm of colon 438329032 Z12.11 Depression screening 171 046024 Z13.31 [id number] Alban Dennis MD [facility] [address] [place] [address] 06/08/2023 16:35:16 06/08/2023 18:05:23 Pain of left hip joint [id number] 71592 M25.280 [id number] Alban Dennis MD [facility] [address] [place] [address] 06/18/2023 14:43:28 06/29/2023 11:07:49 Low back pain 385015438 M54.50 M48.07 [id number] Homero villareal MD S[facility] [place] [facility] [address] [facility] [address] [place] [address] 08/13/2023 10:49:10 08/13/2023 11:28:44 Hypothyroidism 24204634 E03.9 on levothyrox ine Essential hypertension 85279090 I10 on lisinopril /HCTZ Prediabetes 969642485 R7 3.03 continue diet/exerc ise Hyperlipidemia 77702251 E78.5 on atorvastat in Blood in urine 45649640 R31.9 12/2020- he has been referred to urology in the past for this, refuses referral we did discuss risks including risk of untreated bladder cancer and Screening for malignant neoplasm of prostate 880262263 Z12.5 Chronic low back pain 27 1060511 M54.50 following ortho- Dr. Dennis and neurosurge edyta declined injection and PTon diclofenac prn- he is aware of side effects, risks, and benefits I have told him I can give him a small amount but this should be for p.r.n. use only not daily as this can cause damage to his heart, stomach, and kidneys; he knows to take this with foodER precaution s Renewal of prescription 475477601 Z76.0 [id number] Homero villareal MD S_[facility] [place] [address] [facility], [place] [address] [place] [address] 02/18/2024 15:42:05 02/18/2024 16:27:44 Adult health examination 646644703 Z00.00 Screening for disorder 524288962 Z13.9 Screening - NAD 89226039 3 Z13.9 C-scope: 07/09/2023 : Dr Hernandez, repeat in 7 years Get yearly flu shot, get Tdap if not doneGet Shingrix vaccineCan do COIVDNeeds to RSV vaccineUTD on PCV #13 and #23 RTC in 3 months, do labs, ER if worse, he did verbalize his understand ing of the above Hypothyroidism 22036240 E03.9 On levothyrox ine 88mcgs dailyGet labs Essential hypertension 76139408 I10 On lisinopril -HCTZ 10-12.5mg dailyGet labs Hyperlipidemia 39779582 E78.5 09/10/2023 :Lipids: Stable On atorvastat in 40mg dailyGet labs Prediabetes 545281619 R7 3.03 A1C 5.8Decline s any medication sStates that he knows his diet is not good, advised to diet and exercise Get labs History of hematuria 161 145518 Z87.448 UA 09/11/2023 : Neg for bloodShoul d see urology, has declined 02/18/2024 , understand s the risks, willing to do PSA Chronic low back pain 27 7531060 M54.50 Has taken NSAIDs in the past, take very rarely d/t side effects Vitamin D deficiency 347 09176 E55.9 Serum eliza min B12 below reference range 211923461 R79.89 [id number] Homero villareal MD [facility] [place] [facility] [address] , [place] [address] 03/02/2024 10:36:37 03/02/2024 10:58:08 Low back pain 605080278 M54.50 Not much relief with the diclofenac ,stop this May need PTGet on MDP and flexerillE R if worseHe did verbalize his understand ing of the above [id number] Homero villareal MD [facility] Internal Med [facility] [address] [facility], [facility] [address] [place] [address] 09/20/2024 10:55:56 09/20/2024 11:28:25 Low back pain 491238350 M54.50 Not much relief with the diclofenac ,stop this May need PTGet on MDP and flexerillE R if worseHe did verbalize his understand ing of the above OV 09/20/2024 :Does well nowStates that he does take an occasional tylenol and ibuprofen, advised to cut back on these OTC meds d/t the side effects Hypothyroidism 09047752 E03.9 On levothyrox ine 88mcgs dailyGet labs Screening - NAD 43686176 3 Z13.9 C-scope: 07/09/2023 : Dr Hernandez, repeat in 7 years Get yearly flu shot, get Tdap if not doneGet Shingrix vaccineCan do COIVDNeeds to RSV vaccineUTD on PCV #13 and #23 RTC in 3 months, do labs, ER if worse, he did verbalize his understand ing of the above Essential hypertension 11767287 I10 On lisinopril -HCTZ 10-12.5mg dailyGet labs Hyperlipidemia 78605564 E78.5 On atorvastat in 40mg dailyMore diet and exerciseGe t labs Prediabetes 557467140 R7 3.03 Declines any medication s, understand s the risks for elevated glucoseSta daron that he knows his diet is not good, eats donuts and toaster strudel every day, advised to diet and exercise Get labs History of hematuria 161 959507 Z87.448 UA 09/11/2023 : Neg for bloodShoul d see urology, has declined 02/18/2024 , understand s the risks, willing to do PSA Chronic low back pain 27 0940275 M54.50 Has taken NSAIDs in the past, take very rarely d/t side effects Vitamin D deficiency 347 31618 E55.9 Serum eliza min B12 below reference range 531334780 R79.89 [id number] Homero villareal MD [facility] Internal [facility] [address] [facility], [facility] [address] [place] [address] 12/20/2024 11:10:01 12/20/2024 12:04:27 Low back pain 991789883 M54.50 Not much relief with the diclofenac ,stop this May need PTGet on MDP and flexerillE R if worseHe did verbalize his understand ing of the above OV 09/20/2024 :Does well nowStates that he does take an occasional tylenol and ibuprofen, advised to cut back on these OTC meds d/t the side effects Hypothyroidism 46268489 E03.9 On levothyrox ine 88mcgs dailyGet labs Screening - NAD 99377685 3 Z13.9 C-scope: 07/09/2023 : Dr Hernandez, repeat in 7 years Get yearly flu shot, get Tdap if not doneGet Shingrix vaccineCan do COIVDNeeds to RSV vaccineUTD on PCV #13 and #23 RTC in 3 months, do labs, ER if worse, he did verbalize his understand ing of the above Essential hypertension 59997844 I10 On lisinopril -HCTZ 10-12.5mg dailyGet labs Hyperlipidemia 75828637 E78.5 On atorvastat in 40mg dailyMore diet and exerciseGe t labs Prediabetes 531122169 R7 3.03 Declines any medication s, understand s the risks for elevated glucoseSta daron that he knows his diet is not good, eats donuts and toaster strudel every day, advised to diet and exercise Get labs History of hematuria 161 138529 Z87.448 UA 09/11/2023 : Neg for bloodShoul d see urology, has declined 02/18/2024 , understand s the risks, willing to do PSA Chronic low back pain 27 9497989 M54.50 Has taken NSAIDs in the past, take very rarely d/t side effectsAls o seen in the ER for hip pain and states that he has seen Dr Dennis Vitamin D deficiency 347 82425 E55.9 Serum eliza min B12 below reference range 102762105 R79.89 [id number] Homero villareal MD S_[facility] Internal [facility] [address] [facility], [place] [address] [place] [address] 03/07/2025 11:04:28 03/07/2025 11:53:55 Low back pain 433974299 M54.50 Not much relief with the diclofenac ,stop this May need PTGet on MDP and flexerillE R if worseHe did verbalize his understand ing of the above OV 09/20/2024 :Does well nowStates that he does take an occasional tylenol and ibuprofen, advised to cut back on these OTC meds d/t the side effects OV 03/07/2025 : Does well now Hypothyroidism 95870381 E03.9 On levothyrox ine 88mcgs dailyGet labs Screening - NAD 26181913 3 Z13.9 C-scope: 07/09/2023 : Dr Hernandez, repeat in 7 years Get yearly flu shot, get Tdap if not doneGet Shingrix vaccineCan do COIVDNeeds to RSV vaccineUTD on PCV #13 and #23 RTC in 4 months, do labs, ER if worse, he did verbalize his understand ing of the above Essential hypertension 50856372 I10 On lisinopril -HCTZ 10-12.5mg dailyGet labs Hyperlipidemia 52698664 E78.5 On atorvastat in 40mg daily, will now take this every other day 03/07/2025 as he does have some leg crampsMore diet and exerciseGe t labs Prediabetes 685126623 R7 3.03 Declines any medication s, understand s the risks for elevated glucoseSta daron that he knows his diet is not good, eats donuts and toaster strudel every day, advised to diet and exercise Get labs History of hematuria 161 441298 Z87.448 UA 09/11/2023 : Neg for bloodShoul d see urology, has declined 02/18/2024 , understand s the risks, willing to do PSA Vitamin D deficiency 347 35669 E55.9 Serum eliza min B12 below reference range 842063489 R79.89 Chronic low back pain 27 7898343 M54.50 Has taken NSAIDs in the past, take very rarely d/t side effectsAls o seen in the ER for hip pain and states that he has seen Dr Dennis OV 03/07/2025 : Renewed the diclofenac as per his wishes, again explained the risks for taking this daily, he is to take this ONLY as needed rarely Health Concerns Section Related Observation LastModified by Organization Detai ls LastModified Time None Recorded Concern Status LastModified by Organization Details LastModified Time None Recorded Advance Directives Directive Y: Payers Insurance Date Sequence Insurance Name Policy Number Policy Lawson Covered Member ID Lawson Member ID Guarantor Name 03/07/2025 1 FORMERLY [facility] - MEDICARE COMPLETE FOCUS PLAN (MEDICARE REPLACEMENT HMO) [id number] Josh Cooper [id number] Josh Cooper Notes Date Note Type Note Provider Name and Address Organization Details Recorded Time 4 text/html OV 02/18/2024:Here to establish care Present Hx:HypothyroidismHTNPre diabetesHematuriaLBP Here to discuss above and get labs Homero Bell MD [address] [facility], [facility] [address], [place], [address], [place] [facility] [employer] 02/22/2024 18:39:17 4 text/html OV 02/18/2024:Here to establish care Present Hx:HypothyroidismHTNPre diabetesHematuriaLBP Here to discuss above and get labs OV 03/02/2024:ACV: See case on 4C/o SI joint pain, he states that he was lifting a 'planter' that had tipped over and felt a sharp pain in the lower back, pain is much better now, it was both R/L sided now only at the L sideStates that the pain is even better today, some radiation at the back of the L thigh, no N/T, able to now walk and weight bear, no loss of bowel or bladder controlStates that in the past he has been told he has a 'pinched nerve' on the L side and did see a NS, he has also seen Dr Dennis in the past, today would like to get on MDP as this has helped Homero Bell MD [address], [place], [address], [employer] 03/28/2024 10:04:22 5 text/html OV 02/18/2024:Here to establish care Present Hx:HypothyroidismHTNPre diabetesHematuriaLBP Here to discuss above and get labs OV 03/02/2024:ACV: See case on 4C/o SI joint pain, he states that he was lifting a 'planter' that had tipped over and felt a sharp pain in the lower back, pain is much better now, it was both R/L sided now only at the L sideStates that the pain is even better today, some radiation at the back of the L thigh, no N/T, able to now walk and weight bear, no loss of bowel or bladder controlStates that in the past he has been told he has a 'pinched nerve' on the L side and did see a NS, he has also seen Dr Dennis in the past, today would like to get on MDP as this has helped OV 09/20/2024: Here for his f/u apt, he is doing well today Homero Bell MD [address], [address], [place], [address], [employer] 09/20/2024 11:27:49 5 text/html OV 02/18/2024:Here to establish care Present Hx:HypothyroidismHTNPre diabetesHematuriaLBP Here to discuss above and get labs OV 03/02/2024:ACV: See case on 4C/o SI joint pain, he states that he was lifting a 'planter' that had tipped over and felt a sharp pain in the lower back, pain is much better now, it was both R/L sided now only at the L sideStates that the pain is even better today, some radiation at the back of the L thigh, no N/T, able to now walk and weight bear, no loss of bowel or bladder controlStates that in the past he has been told he has a 'pinched nerve' on the L side and did see a NS, he has also seen Dr Dennis in the past, today would like to get on MDP as this has helped OV 09/20/2024: Here for his f/u apt, he is doing well today OV 12/20/2024: Here for his f/u apt, he feels well today Homero Bell MD [address] [facility], [facility] [address], [place], [address], [facility] [employer] 12/20/2024 15:02:54 text/html OV 02/18/2024:Here to establish care Present Hx:HypothyroidismHTNPre diabetesHematuriaLBP Here to discuss above and get labs OV 03/02/2024:ACV: See case on 4C/o SI joint pain, he states that he was lifting a 'planter' that had tipped over and felt a sharp pain in the lower back, pain is much better now, it was both R/L sided now only at the L sideStates that the pain is even better today, some radiation at the back of the L thigh, no N/T, able to now walk and weight bear, no loss of bowel or bladder controlStates that in the past he has been told he has a 'pinched nerve' on the L side and did see a NS, he has also seen Dr Dennis in the past, today would like to get on MDP as this has helped OV 09/20/2024: Here for his f/u apt, he is doing well today OV 12/20/2024: Here for his f/u apt, he feels well today OV 03/07/2025: Here for his f/u apt, he is doing well today, he did do the labs and he would like to get on the diclofenac again Homero Bell MD [address] [place] [address], [facility] [address], [place], [address], [facility] 03/07/2025 11:52:30
[2025-03-16 16:15] VITALS: BP 95/55; PULSE 72; TEMP 35.7; O2SAT 99
--- NOTE | 2025-03-16 18:08 | ECG_ITS ---
Test Date: 2025-03-16 18:43:44 Measurements Intervals [place] Rate: 69 P: 46 IN: 213 QRS: 7 QRSD: 106 T: 54 QT: 384 QTc: 412 Interpretive Statements SINUS RHYTHM WITH SINUS ARRHYTHMIA WITH FIRST DEGREE AV BLOCK No previous ECG available for comparison Electronically Signed On 03-17-2025 07:10:10 CDT by Katherine Fox M.D.
--- NOTE | 2025-03-16 18:10 | ED_ITS ---
HPI - Nausea/Vomiting/Diarrhea General Chief complaint: Nausea/Vomiting/Diarrhea <Colleen Tim PA-C - Last Filed: 03/16/25 18:11> Stated complaint: heat exhaustion <Colleen Tim PA-C - Last Filed: 03/16/25 18:11> Time Seen by Provider: 03/16/25 18:38 <Colleen Tim PA-C - Last Filed: 03/16/25 18:11> Focused HPI: 75-year-old male presents emergency department with concerns for heat exhaustion. Patient states he was outside pressure washing his house for approximately 3 hours in the heat when he had sudden onset nausea, vomiting and generalized weakness. Patient is found to be hypotensive in the 90 systolic by EMS and given 300 cc of normal saline with improvement in his blood pressure to 120 systolic. He denies any chest pain, shortness of breath, cough or congestion, abdominal pain, lower extremity edema, diarrhea. He is reporting some soreness to his left calf and is concerned he may have pulled it while standing on the ladder. GENERAL: Ill-appearing, well-nourished, and in no acute distress. HEAD: Normocephalic, atraumatic. CHEST: Clear to auscultation. ?No respiratory distress. HEART: Regular rate and rhythm.? NEURO: ?Alert and oriented x3. Patient screened in triage and initial orders placed.? ?Additional care and disposition to be based upon?diagnostic testing and treatment. <Colleen Tim PA-C - Last Filed: 03/16/25 18:11> Focused HPI: 75-year-old male presents emergency department with concerns for heat exhaustion. Patient states he was outside pressure washing his house for approximately 3 hours in the heat when he had sudden onset nausea, vomiting and generalized weakness. Patient is found to be hypotensive in the 90 systolic by EMS and given 300 cc of normal saline with improvement in his blood pressure to 120 systolic. He denies any chest pain, shortness of breath, cough or congestion, abdominal pain, lower extremity edema, diarrhea. He is reporting some soreness to his left calf and is concerned he may have pulled it while standing on the ladder. GENERAL: Ill-appearing, well-nourished, and in no acute distress. HEAD: Normocephalic, atraumatic. CHEST: Clear to auscultation. ?No respiratory distress. HEART: Regular rate and rhythm.? NEURO: ?Alert and oriented x3. Patient screened in triage and initial orders placed.? ?Additional care and disposition to be based upon?diagnostic testing and treatment. <Jennifer Burns PA-C - Last Filed: 03/17/25 00:21> Related Data Home medications: Home Medications ?Medication ?Instructions ?Recorded ?Confirmed ?Last Taken ?Type atorvastatin 40 mg tablet 40 mg PO HS 05/05/23 07/09/23 06/15/23 History levothyroxine 88 mcg tablet 88 mcg PO DAILY 05/05/23 07/09/23 06/15/23 History lisinopril 10 1 tablet PO DAILY 05/05/23 07/09/23 06/15/23 History mg-hydrochlorothiazide 12.5 mg tablet <Colleen Tim PA-C - Last Filed: 03/16/25 18:11> Allergies/Adverse reactions: Allergies Allergy/AdvReac Type Severity Reaction Status Date / Time No Known Allergies Allergy Verified 03/16/25 18:58 <Colleen Tim PA-C - Last Filed: 03/16/25 18:11> Review of Systems 2 Review of Systems: All systems reviewed & are unremarkable except as noted in HPI and below <Jennifer Burns PA-C - Last Filed: 03/17/25 00:21> PMFSH Past Medical History Medical History: Medical History (Updated 03/17/25 @ 00:17 by Jennifer Burns PA-C) Hypothyroidism Hypertension Hyperlipidemia <Colleen Tim PA-C - Last Filed: 03/16/25 18:11> Social History Social History: Social History Smoking status: Never smoker Alcohol intake: current Alcohol use details: 2 beers daily Substance use type: does not use Living arrangements: with family Spiritual care concerns: No <Colleen Tim PA-C - Last Filed: 03/16/25 18:11> Exam 2 Narrative: GENERAL: Well-appearing, well-nourished, and in no acute distress. HEAD: Normocephalic, atraumatic. EYES: EOMI. ENT: Nares clear, no rhinorrhea or epistaxis. Mucous membranes moist. Oropharynx without tonsillar hypertrophy exudate or other lesions. NECK: Supple. No adenopathy or masses. CHEST: Clear to auscultation. No respiratory distress. No wheezes rales or rhonchi HEART: Regular rate and rhythm. No murmur heard. Normal peripheral pulses. EXTREMITIES: Normal range of motion. No edema or erythema. Normal DP pulse. Normal sensation SKIN: Warm, dry, no rash. NEURO: No focal deficits. Alert and oriented x3. PSYCH: Normal mood and affect <Jennifer Burns PA-C - Last Filed: 03/17/25 00:21> Course Vital Signs Vital signs: Vital Signs Temperature 96.2 F L 03/16/25 16:15 Pulse Rate 72 03/16/25 16:15 Blood Pressure 95/55 L 03/16/25 16:15 Pulse Oximetry 99 03/16/25 16:15 Temperature 96.2 F L 03/16/25 16:15 Pulse Rate 76 03/16/25 20:29 Respiratory Rate 16 03/16/25 18:55 Blood Pressure 127/83 03/16/25 20:29 Pulse Oximetry 97 03/16/25 18:55 Oxygen Delivery Room Air 03/16/25 18:55 <Colleen Tim PA-C - Last Filed: 03/16/25 18:11> Vital Signs Temperature 96.2 F L 03/16/25 16:15 Pulse Rate 72 03/16/25 16:15 Blood Pressure 95/55 L 03/16/25 16:15 Pulse Oximetry 99 03/16/25 16:15 Temperature 96.2 F L 03/16/25 16:15 Pulse Rate 76 03/16/25 20:29 Respiratory Rate 16 03/16/25 18:55 Blood Pressure 127/83 03/16/25 20:29 Pulse Oximetry 97 03/16/25 18:55 Oxygen Delivery Room Air 03/16/25 18:55 <Jennifer Burns PA-C - Last Filed: 03/17/25 00:21> MDM - Nausea/Vomiting/Diarrhea MDM Narrative Medical decision making narrative: Patient presents to the emergency department for possible dehydration. Had been working outside for several hours today. Does not report he drink much water. Blood pressure soft upon arrival, this responded to IV fluids. CBC with mild leukocytosis to 11.5. Metabolic panel initially with evidence of acute kidney injury and dehydration. He was hydrated with 2 L of IV fluids. Repeat metabolic panel with normal appearing kidney function. Urine without evidence of infection. CK mildly elevated. Patient reports relief after IV fluid hydration. He is to follow up with primary provider. He was given warnings to return to the ER <Jennifer Burns PA-C - Last Filed: 03/17/25 00:21> Differential Diagnosis Differential diagnosis: Likely food poisoning, gastroenteritis, drug-induced nausea and vomiting, dehydration and other (electrolyte derangement) <SHAGUFTA Seay Last Filed: 03/17/25 00:21> Lab Data Attestation: I reviewed the patient's lab results. <Jennifer Burns PA-C - Last Filed: 03/17/25 00:21> Result diagrams: 03/16/25 18:49 03/16/25 23:33 <SHAGUFTA Palomino Last Filed: 03/16/25 18:11> Labs: Lab Results 03/16/25 03/16/25 03/16/25 Range/Units 18:48 18:49 19:30 WBC 11.5 H (4.5-10.0) K/mm3 RBC 5.28 (4.6-6.20) M/mm3 Hgb 16.4 (14.0-18.0) g/dL Hct 49.7 (42.0-52.0) % MCV 94.1 (80-100) fl MCH 31.1 (26-34) pg MCHC 33.0 (32-36) g/dl RDW 14.0 (11.5-14.5) % Plt Count 198 (150-375) k/mm3 MPV 9.3 (7.4-10.4) fl Immature Gran % (Auto) 0.3 (0-0.5) % Neut % (Auto) 82.9 H (45.5-73.1) % Lymph % (Auto) 9.2 L (18.3-44.2) % [place] % (Auto) 6.6 (2.6-8.5) % Eos % (Auto) 0.7 (0-4.4) % Baso % (Auto) 0.3 (0.2-1.2) % Lymph # (Auto) 1.06 (0.9-3.2) K/mm3 [place] # (Auto) 0.8 H (0.1-0.6) K/mm3 Eos # (Auto) 0.1 (0-0.3) K/mm3 Baso # (Auto) 0.0 (0.0-0.1) K/mm3 Abs Immat Gran (auto) 0.04 H (0.00-0.031) K/mm3 Absolute Neuts (auto) 9.5 H (1.3-6.7) K/mm3 Absolute Nucleated RBC 0.000 (0.0-0.012) K/mm3 Nucleated RBC % 0.0 (0.0-0.2) % Sodium 143 Cancelled (137-145) mmol/L Potassium 4.6 Cancelled (3.4-5.0) mmol/L Chloride 105 Cancelled (98-107) mmol/L Carbon Dioxide 24 Cancelled (22-30) mmol/L Anion Gap 14 H Cancelled (4-12) mmol/L BUN 21 H Cancelled (9-20) mg/dL Creatinine 1.76 H Cancelled (0.7-1.3) mg/dL Estim Creat Clear Calc 36 Cancelled ml/min Estimated GFR 38 L Cancelled (59 - ) Glucose 122 H Cancelled (65-110) mg/dL Calcium 10.7 H Cancelled (8.4-10.2) mg/dL Magnesium 2.4 H (1.6-2.3) mg/dL Total Bilirubin 0.9 Cancelled (0.2-1.3) mg/dL AST 40 Cancelled (17-59) U/L ALT 33 Cancelled (6-50) U/L Alkaline Phosphatase 65 Cancelled (38-126) U/L Total Creatine Kinase 215 H (55-170) U/L Total Protein 8.4 H Cancelled (6.3-8.2) g/dL Albumin 4.9 Cancelled (3.5-5.1) g/dL Urine Color Yellow (Yellow) Urine Appearance Cloudy H (Clear) Urine pH 6.0 (5.0-9.0) Ur Specific [place] 1.019 (1.001-1.035) Urine Protein 1+ H (Negative) mg/dL Urine Glucose (UA) Negative (Negative) mg/dL Urine Ketones 1+ H (Negative) mg/dL Ur Blood (Man) Negative (Negative) Urine Nitrate Negative (Negative) Urine Bilirubin Negative (Negative) Urine Urobilinogen 1.0 (<2.0) mg/dL Add Ur Microanalysis Reviewed Leukocyte Esterase Rfl Trace H (Negative) LIONEL/UL Urine RBC 0-2 (0-2) /hpf Urine WBC 0-5 (0-3) /hpf Ur Squamous Epith Cells Occasional (Few) /hpf Urine Bacteria None seen /hpf Urine Casts >20 Hyaline Casts Present (None) /lpf 03/16/25 Range/Units 23:33 WBC (4.5-10.0) K/mm3 RBC (4.6-6.20) M/mm3 Hgb (14.0-18.0) g/dL Hct (42.0-52.0) % MCV (80-100) fl MCH (26-34) pg MCHC (32-36) g/dl RDW (11.5-14.5) % Plt Count (150-375) k/mm3 MPV (7.4-10.4) fl Immature Gran % (Auto) (0-0.5) % Neut % (Auto) (45.5-73.1) % Lymph % (Auto) (18.3-44.2) % [place] % (Auto) (2.6-8.5) % Eos % (Auto) (0-4.4) % Baso % (Auto) (0.2-1.2) % Lymph # (Auto) (0.9-3.2) K/mm3 [place] # (Auto) (0.1-0.6) K/mm3 Eos # (Auto) (0-0.3) K/mm3 Baso # (Auto) (0.0-0.1) K/mm3 Abs Immat Gran (auto) (0.00-0.031) K/mm3 Absolute Neuts (auto) (1.3-6.7) K/mm3 Absolute Nucleated RBC (0.0-0.012) K/mm3 Nucleated RBC % (0.0-0.2) % Sodium 140 (137-145) mmol/L Potassium 4.3 (3.4-5.0) mmol/L Chloride 106 (98-107) mmol/L Carbon Dioxide 26 (22-30) mmol/L Anion Gap 8 (4-12) mmol/L BUN 22 H (9-20) mg/dL Creatinine 1.28 (0.7-1.3) mg/dL Estim Creat Clear Calc 49 ml/min Estimated GFR 55 L (59 - ) Glucose 165 H (65-110) mg/dL Calcium 9.6 (8.4-10.2) mg/dL Magnesium (1.6-2.3) mg/dL Total Bilirubin (0.2-1.3) mg/dL AST (17-59) U/L ALT (6-50) U/L Alkaline Phosphatase (38-126) U/L Total Creatine Kinase (55-170) U/L Total Protein (6.3-8.2) g/dL Albumin (3.5-5.1) g/dL Urine Color (Yellow) Urine Appearance (Clear) Urine pH (5.0-9.0) Ur Specific [place] (1.001-1.035) Urine Protein (Negative) mg/dL Urine Glucose (UA) (Negative) mg/dL Urine Ketones (Negative) mg/dL Ur Blood (Man) (Negative) Urine Nitrate (Negative) Urine Bilirubin (Negative) Urine Urobilinogen (<2.0) mg/dL Add Ur Microanalysis Leukocyte Esterase Rfl (Negative) LIONEL/UL Urine RBC (0-2) /hpf Urine WBC (0-3) /hpf Ur Squamous Epith Cells (Few) /hpf Urine Bacteria /hpf Urine Casts Hyaline Casts (None) /lpf <Colleen Tim PA-C - Last Filed: 03/16/25 18:11> Lab Results 03/16/25 03/16/25 03/16/25 Range/Units 18:48 18:49 19:30 WBC 11.5 H (4.5-10.0) K/mm3 RBC 5.28 (4.6-6.20) M/mm3 Hgb 16.4 (14.0-18.0) g/dL Hct 49.7 (42.0-52.0) % MCV 94.1 (80-100) fl MCH 31.1 (26-34) pg MCHC 33.0 (32-36) g/dl RDW 14.0 (11.5-14.5) % Plt Count 198 (150-375) k/mm3 MPV 9.3 (7.4-10.4) fl Immature Gran % (Auto) 0.3 (0-0.5) % Neut % (Auto) 82.9 H (45.5-73.1) % Lymph % (Auto) 9.2 L (18.3-44.2) % [place] % (Auto) 6.6 (2.6-8.5) % Eos % (Auto) 0.7 (0-4.4) % Baso % (Auto) 0.3 (0.2-1.2) % Lymph # (Auto) 1.06 (0.9-3.2) K/mm3 [place] # (Auto) 0.8 H (0.1-0.6) K/mm3 Eos # (Auto) 0.1 (0-0.3) K/mm3 Baso # (Auto) 0.0 (0.0-0.1) K/mm3 Abs Immat Gran (auto) 0.04 H (0.00-0.031) K/mm3 Absolute Neuts (auto) 9.5 H (1.3-6.7) K/mm3 Absolute Nucleated RBC 0.000 (0.0-0.012) K/mm3 Nucleated RBC % 0.0 (0.0-0.2) % Sodium 143 Cancelled (137-145) mmol/L Potassium 4.6 Cancelled (3.4-5.0) mmol/L Chloride 105 Cancelled (98-107) mmol/L Carbon Dioxide 24 Cancelled (22-30) mmol/L Anion Gap 14 H Cancelled (4-12) mmol/L BUN 21 H Cancelled (9-20) mg/dL Creatinine 1.76 H Cancelled (0.7-1.3) mg/dL Estim Creat Clear Calc 36 Cancelled ml/min Estimated GFR 38 L Cancelled (59 - ) Glucose 122 H Cancelled (65-110) mg/dL Calcium 10.7 H Cancelled (8.4-10.2) mg/dL Magnesium 2.4 H (1.6-2.3) mg/dL Total Bilirubin 0.9 Cancelled (0.2-1.3) mg/dL AST 40 Cancelled (17-59) U/L ALT 33 Cancelled (6-50) U/L Alkaline Phosphatase 65 Cancelled (38-126) U/L Total Creatine Kinase 215 H (55-170) U/L Total Protein 8.4 H Cancelled (6.3-8.2) g/dL Albumin 4.9 Cancelled (3.5-5.1) g/dL Urine Color Yellow (Yellow) Urine Appearance Cloudy H (Clear) Urine pH 6.0 (5.0-9.0) Ur Specific [place] 1.019 (1.001-1.035) Urine Protein 1+ H (Negative) mg/dL Urine Glucose (UA) Negative (Negative) mg/dL Urine Ketones 1+ H (Negative) mg/dL Ur Blood (Man) Negative (Negative) Urine Nitrate Negative (Negative) Urine Bilirubin Negative (Negative) Urine Urobilinogen 1.0 (<2.0) mg/dL Add Ur Microanalysis Reviewed Leukocyte Esterase Rfl Trace H (Negative) LIONEL/UL Urine RBC 0-2 (0-2) /hpf Urine WBC 0-5 (0-3) /hpf Ur Squamous Epith Cells Occasional (Few) /hpf Urine Bacteria None seen /hpf Urine Casts >20 Hyaline Casts Present (None) /lpf 03/16/25 Range/Units 23:33 WBC (4.5-10.0) K/mm3 RBC (4.6-6.20) M/mm3 Hgb (14.0-18.0) g/dL Hct (42.0-52.0) % MCV (80-100) fl MCH (26-34) pg MCHC (32-36) g/dl RDW (11.5-14.5) % Plt Count (150-375) k/mm3 MPV (7.4-10.4) fl Immature Gran % (Auto) (0-0.5) % Neut % (Auto) (45.5-73.1) % Lymph % (Auto) (18.3-44.2) % [place] % (Auto) (2.6-8.5) % Eos % (Auto) (0-4.4) % Baso % (Auto) (0.2-1.2) % Lymph # (Auto) (0.9-3.2) K/mm3 [place] # (Auto) (0.1-0.6) K/mm3 Eos # (Auto) (0-0.3) K/mm3 Baso # (Auto) (0.0-0.1) K/mm3 Abs Immat Gran (auto) (0.00-0.031) K/mm3 Absolute Neuts (auto) (1.3-6.7) K/mm3 Absolute Nucleated RBC (0.0-0.012) K/mm3 Nucleated RBC % (0.0-0.2) % Sodium 140 (137-145) mmol/L Potassium 4.3 (3.4-5.0) mmol/L Chloride 106 (98-107) mmol/L Carbon Dioxide 26 (22-30) mmol/L Anion Gap 8 (4-12) mmol/L BUN 22 H (9-20) mg/dL Creatinine 1.28 (0.7-1.3) mg/dL Estim Creat Clear Calc 49 ml/min Estimated GFR 55 L (59 - ) Glucose 165 H (65-110) mg/dL Calcium 9.6 (8.4-10.2) mg/dL Magnesium (1.6-2.3) mg/dL Total Bilirubin (0.2-1.3) mg/dL AST (17-59) U/L ALT (6-50) U/L Alkaline Phosphatase (38-126) U/L Total Creatine Kinase (55-170) U/L Total Protein (6.3-8.2) g/dL Albumin (3.5-5.1) g/dL Urine Color (Yellow) Urine Appearance (Clear) Urine pH (5.0-9.0) Ur Specific [place] (1.001-1.035) Urine Protein (Negative) mg/dL Urine Glucose (UA) (Negative) mg/dL Urine Ketones (Negative) mg/dL Ur Blood (Man) (Negative) Urine Nitrate (Negative) Urine Bilirubin (Negative) Urine Urobilinogen (<2.0) mg/dL Add Ur Microanalysis Leukocyte Esterase Rfl (Negative) LIONEL/UL Urine RBC (0-2) /hpf Urine WBC (0-3) /hpf Ur Squamous Epith Cells (Few) /hpf Urine Bacteria /hpf Urine Casts Hyaline Casts (None) /lpf <Jennifer Burns PA-C - Last Filed: 03/17/25 00:21> ECG Data EKG #1: ECG completion date: 03/16/25 <SHAGUFTA Seay Last Filed: 03/17/25 00:21> EKG Interpretation: normal rate, sinus rhythm, no ST changes and normal QT <SHAGUFTA Seay Last Filed: 03/17/25 00:21> Critical Care Time Critical Care Time Critical Care Time: No <SHAGUFTA Seay Last Filed: 03/17/25 00:21> Discharge Plan Discharge Clinical Impression: Acute dehydration <SHAGUFTA Palomino Last Filed: 03/16/25 18:11> Patient Disposition: Home <SHAGUFTA Palomino Filed: 03/16/25 18:11> Condition: Stable <SHAGUFTA Palomino Filed: 03/16/25 18:11> Instructions: Dehydration (ED) <SHAGUFTA Palomino Filed: 03/16/25 18:11> Additional Instructions: Return to the emergency department if you experience fever, chest pain, shortness of breath, abdominal pain with nausea and vomiting, weakness, numbness, or any other symptoms that are concerning to you. Remain well hydrated Follow up with your primary care doctor <SHAGUFAT Palomino Filed: 03/16/25 18:11> Patient Language: Amharic <SHAGUFTA Palomino Filed: 03/16/25 18:11> Prescriptions: No Action cyclobenzaprine 10 mg tablet 10 mg PO BID PRN (Reason: muscle spasm) Qty: 14 0RF hydrocodone-acetaminophen 5-325 mg tablet 1 tablet PO Q12H PRN (Reason: pain) Qty: 10 0RF sodium,potassium,mag sulfates [Suprep Bowel Prep Kit] 17.5-3.13-1.6 gram recon soln See Rx Instructions PO .COMPLEX Qty: 354 0RF Rx Instructions: Take as directed. sodium,potassium,mag sulfates [Suprep Bowel Prep Kit] 17.5-3.13-1.6 gram recon soln See Rx Instructions PO .COMPLEX Qty: 354 0RF Rx Instructions: TAKE DIRECTED atorvastatin 40 mg tablet 40 mg PO HS levothyroxine 88 mcg tablet 88 mcg PO DAILY lisinopril-hydrochlorothiazide 10-12.5 mg tablet 1 tablet PO DAILY <Colleen Tim PA-C - Last Filed: 03/16/25 18:11> Follow-up/Referrals: Ray,MD Homero [Primary Care Provider] - <Colleen Tim PA-C - Last Filed: 03/16/25 18:11>
[2025-03-16] MEDS: SODIUM CHLORIDE 0.9% IV 1,000 ML 999 ML IV CONT (18:51)
[2025-03-16] MEDS: ONDANSETRON INJ 4 MG/2 ML VIAL IV PUSH (18:52)
--- OUTSIDE RECORDS SUMMARY | 2025-03-16 18:52 | XMS_ITS | Continuity of Care Document ---
Author Organization [facility] Address [address] [place] [address] [address] [place] [address] Phone Care Team Providers Care Brine Supervisor Name Role Phone Re Hawk Unavailable Unavailable Advance Directives Directive Yes / No Effective Date File Name No Information Encounters Encounter Description Practice Location Reason(s) For Visit Diagnoses Date Provider Providers Copied on Encounter [facility], [id number] [place] [address] [address], [place], [place], [id number], [place] tel:[phone] [facility] No Information Mar-0 3-200 5 Carine Grimaldo. [address] [facility] , [address], [place], [address], [place]. tel:[phone] Family History Family Member Type Diagnosis Age At Onset No Information Payers Payer name Insurance type Covered republican ID Authoriza tion(s) No Information Social History [...]
--- OUTSIDE RECORDS SUMMARY | 2025-03-16 18:52 | XMS_ITS | Clinical Summary ---
Author Organization [facility] Address [address] [place] [id number] Care Team Providers Care Marine Extension Agent Name Role Phone Unavailable Primary Care Provider [...]
[2025-03-16 18:55] VITALS: BP 127/80; PULSE 72; RESP 16; O2SAT 97
[2025-03-16 18:55] LABS: Hematocrit 49.7 % (42.0-52.0); Hemoglobin 16.4 g/dL (14.0-18.0); Immature Granulocyte Percent A 0.3 % (0-0.5); Lymphocytes Absolute Auto 1.06 K/mm3 (0.9-3.2); Mean Corpuscular HGB Conc 33.0 g/dl (32-36); Mean Corpuscular Hemoglobin 31.1 pg (26-34); Mean Corpuscular Volume 94.1 fl (80-100); Nucleated Red Blood Cells Absolute Auto 0.000 K/mm3 (0.0-0.012); Nucleated Red Blood Cells Perc 0.0 % (0.0-0.2); Platelet Count Result 198 k/mm3 (150-375); Red Blood Count 5.28 M/mm3 (4.6-6.20); White Blood Count 11.5 K/mm3 (4.5-10.0)
[2025-03-16 19:11] LABS: Creatine Kinase 215 U/L (55-170); Magnesium 2.4 mg/dL (1.6-2.3)
--- NOTE | 2025-03-16 19:39 | PC.NURSE ---
Received report from [facility] for cont. of care. Pt lying on stretcher respirations even and unlabored. Pt AOX4, denies nausea and/or pain.
[2025-03-16 19:52] LABS: Add Urine Microscopic? YES; Appearance Urine Cloudy (Clear); Glucose Urine UA Negative (Negative); Leukocyte Esterase Ur Trace LEU/UL (Negative); Need Manual Microscopic Reviewed; Nitrate Urine Negative (Negative); Non Pathogenic Casts >20; Specific Grav Ur 1.019 (1.001-1.035)
[2025-03-16 20:27] VITALS: BP 128/84; PULSE 71
[2025-03-16 20:28] VITALS: BP 135/91; PULSE 79
[2025-03-16 20:29] VITALS: BP 127/83; PULSE 76
[2025-03-16 20:35] LABS: Alanine Aminotransferase 33 U/L (6-50); Albumin Level 4.9 g/dL (3.5-5.1); Alkaline Phosphatase 65 U/L (38-126); Anion Gap 14 mmol/L (4-12); Aspartate Amino Transferase 40 U/L (17-59); Bilirubin,Total 0.9 mg/dL (0.2-1.3); Blood Urea Nitrogen 21 mg/dL (9-20); Calcium 10.7 mg/dL (8.4-10.2); Carbon Dioxide 24 mmol/L (22-30); Chloride 105 mmol/L (98-107); Estimated CRCL calculation 36 ml/min; Estimated Glomerular Filt Rate 38; Glucose 122 mg/dL (65-110); Potassium 4.6 mmol/L (3.4-5.0); Sodium 143 mmol/L (137-145); Total Protein 8.4 g/dL (6.3-8.2)
[2025-03-16] MEDS: LACTATED RINGERS 1,000 ML 999 ML IV CONT (21:47)
[2025-03-16 23:59] LABS: Anion Gap 8 mmol/L (4-12); Blood Urea Nitrogen 22 mg/dL (9-20); Calcium 9.6 mg/dL (8.4-10.2); Carbon Dioxide 26 mmol/L (22-30); Chloride 106 mmol/L (98-107); Estimated CRCL calculation 49 ml/min; Estimated Glomerular Filt Rate 55; Glucose 165 mg/dL (65-110); Potassium 4.3 mmol/L (3.4-5.0); Sodium 140 mmol/L (137-145)
[2025-03-17 00:27] VITALS: BP 138/82; PULSE 73; RESP 15; O2SAT 97
== END 2025-03-17 00:31 | disposition home or self-care (01) ==
PROVIDERS: Physician Assistant; Emergency Provider Physician Assistant; PCP Internal Medicine
DX: E86.0 Dehydration (principal); I10 Essential (primary) hypertension; E03.9 Hypothyroidism, unspecified; E78.5 Hyperlipidemia, unspecified; I44.0 Atrioventricular block, first degree
CPT/HCPCS: 36415; 80048; 80053; 81001; 82550; 83735; 85025; 93005; 96361; 96374; 99284; J2405; J7030; J7120